=== PATIENT | female | born 1960 | race Caucasian/White ===

== ENCOUNTER 2017-06-28 09:03 | Emergency (ER) | payer OTHER ==
[~2017-06-28] VITALS: Ht 162.6 cm; Wt 114.8 kg
[2017-06-28 10:43] VITALS: BP 142/90
== END 2017-06-28 10:43 | disposition home or self-care (01) ==
LOC: ED 09:03
DX: K04.7 Periapical abscess without sinus (principal); J45.909 Unspecified asthma, uncomplicated; F17.210 Nicotine dependence, cigarettes, uncomplicated; K02.9 Dental caries, unspecified; Z71.6 Tobacco abuse counseling
CPT/HCPCS: 99406; J0690

== ENCOUNTER 2017-06-28 19:16 | Emergency (ER) | payer OTHER ==
[2017-06-28 19:26] VITALS: BP 146/83
== END 2017-06-28 19:49 | disposition home or self-care (01) ==
LOC: ED 19:16
DX: R29.810 Facial weakness (principal); K04.7 Periapical abscess without sinus; J45.909 Unspecified asthma, uncomplicated; Z98.890 Other specified postprocedural states; Z79.2 Long term (current) use of antibiotics; Z79.891 Long term (current) use of opiate analgesic; Z79.1 Long term (current) use of non-steroidal anti-inflammatories (NSAID)

== ENCOUNTER 2018-05-21 13:29 | Emergency (ER) | payer OTHER ==
[~2018-05-21] VITALS: Ht 160 cm; Wt 86.2 kg
[2018-05-21 13:49] VITALS: Ht 160 cm; Wt 86.2 kg
[2018-05-21 14:35] LABS: PLATELET COUNT 309 x10^3mcL (130-400)
[2018-05-21 14:57] LABS: CALCIUM 8.9 mg/dL (8.5-10.1); CARBON DIOXIDE 28.8 mmol/L (21-32); CHLORIDE SERUM 104 mmol/L (98-107); CREATININE SERUM 0.6 mg/dL (0.6-1.0); GFR1 > 60 mL/min; GLUCOSE SERUM 90 mg/dL (74-106); POTASSIUM SERUM 3.6 mmol/L (3.5-5.1); SODIUM SERUM 140 mmol/L (136-145)
[2018-05-21 14:59] LABS: AMPHETAMINE QUAL UR NONE DETECTED (See below)
[2018-05-21 15:03] LABS: ALBUMIN 3.5 g/dL (3.4-5.0); ALKALINE PHOSPHATASE 91 U/L (46-116); ALT/SGPT 32 U/L (14-59); AST/SGOT 16 U/L (15-37); BILIRUBIN TOTAL 0.4 mg/dL (0.20-1.00)
[2018-05-21 15:07] LABS: CHOLESTEROL 210 mg/dL (<200); HDL CHOLESTEROL 63 mg/dL (40-60)
[2018-05-21 17:06] VITALS: BP 123/75
== END 2018-05-21 17:07 | disposition home or self-care (01) ==
LOC: ED 13:29
PROVIDERS: Emergency Medicine
DX: R55 Syncope and collapse (principal); J45.909 Unspecified asthma, uncomplicated; F17.210 Nicotine dependence, cigarettes, uncomplicated; Z90.711 Acquired absence of uterus with remaining cervical stump
CPT/HCPCS: 36415; 82962; 99406; Q0092

== ENCOUNTER 2018-12-12 10:10 | Emergency (ER) | payer OTHER ==
[~2018-12-12] VITALS: Ht 162.6 cm; Wt 114.8 kg
[2018-12-12 10:14] VITALS: Ht 162.6 cm; Wt 114.8 kg
[2018-12-12 10:53] LABS: BASOPHIL % 0.7 % (0-2); PLATELET COUNT 268 x10^3mcL (130-400)
[2018-12-12 11:07] LABS: CALCIUM 9.3 mg/dL (8.5-10.1); CHLORIDE SERUM 105 mmol/L (98-107); CREATININE SERUM 0.7 mg/dL (0.6-1.0); GFR1 > 60 mL/min; GLUCOSE SERUM 128 mg/dL (74-106); POTASSIUM SERUM 4.9 mmol/L (3.5-5.1); SODIUM SERUM 142 mmol/L (136-145)
[2018-12-12 11:13] LABS: ALBUMIN 3.5 g/dL (3.4-5.0); ALKALINE PHOSPHATASE 86 U/L (46-116); ALT/SGPT 29 U/L (14-59); AST/SGOT 18 U/L (15-37); BILIRUBIN TOTAL 0.3 mg/dL (0.20-1.00); TOTAL PROTEIN, SERUM 7.2 g/dL (6.4-8.2)
[2018-12-12 11:34] VITALS: BP 139/85
== END 2018-12-12 11:34 | disposition home or self-care (01) ==
LOC: ED 10:10
PROVIDERS: Emergency Medicine
DX: R10.32 Left lower quadrant pain (principal); J45.909 Unspecified asthma, uncomplicated; Z90.710 Acquired absence of both cervix and uterus
CPT/HCPCS: 10022; 36415; J1885